=== PATIENT | female | born 1940 | race Caucasian/White ===

== ENCOUNTER 2020-07-29 16:33 | Inpatient (IN) ==
[2020-07-29] MEDS ORDERED: D5% in Water 1,000 ML IVC PRN (17:23)
[2020-07-29] MEDS ORDERED: Dextrose Gel 15 GM/37.5 ML TUBE PO PRN ×2 (17:23)
[2020-07-29] MEDS ORDERED: *HR* Dextrose 50 % in Water (Vial) 50 ML VIAL IVP PRN (17:23)
[2020-07-29] MEDS: Insulin LISPRO 300 UNITS/3 ML VIAL SUBQ SCH (21:13)
[2020-07-29] MEDS ORDERED: Naloxone 0.4 MG/ML INJ IVP PRN (21:20)
[2020-07-29] MEDS: *HR* OxyCODONE Immed Rel 5 MG TABLET PO PRN (21:52)
[2020-07-29] MEDS: Gabapentin 100 MG CAPSULE PO SCH (21:52)
[2020-07-30 06:53] LABS: Basophils % 0.3 %; Eosinophils # 0.2 K/mcL (0.0-0.6); Hematocrit 25.1 % (35.3-44.9); Hemoglobin 7.8 g/dL (11.5-15.4); Immature Granulocytes % 1.2 % (0-4); Lymphocytes # 0.7 K/mcL (0.6-4.6); Lymphocytes % 9.2 %; Mean Corpuscular HGB Conc 31.1 g/dL (31.6-35.5); Mean Corpuscular Hemoglobin 30.5 pg (28.0-33.3); Mean Platelet Volume 9.2 fL (9.4-12.4); Monocytes # 0.6 K/mcL (0.0-1.3); Monocytes % 7.8 %; Neutrophils # 6.1 K/mcL (1.6-8.9); Platelet Count 277 K/mcL (140-400); Red Blood Count 2.56 M/mcL (3.82-4.97); Red Cell Distribution Width 15.8 % (11.5-14.5); Segmented Neutrophils % 79.5 %; White Blood Count 7.7 K/mcL (4.3-11.1)
[2020-07-30] MEDS ORDERED: *HR* Enoxaparin 40 MG/0.4 ML SYRINGE SQ SCH (07:00)
[2020-07-30 07:16] LABS: Calcium 7.7 mg/dL (8.6-10.3); Potassium 4.9 mEq/L (3.5-5.1)
[2020-07-30] MEDS: Metoprolol XL (24 HR) Succ 25 MG TAB.ER.24H PO SCH (09:03)
[2020-07-30] MEDS: Aspirin 81 MG TAB.CHEW PO SCH (09:03)
[2020-07-30] MEDS: lisinopriL 5 MG TABLET PO SCH (09:04)
[2020-07-30] MEDS: Gabapentin 100 MG CAPSULE PO SCH ×3 (09:04→20:27)
[2020-07-30] MEDS: Furosemide 40 MG TABLET PO SCH (09:04)
[2020-07-30] MEDS: Insulin LISPRO 300 UNITS/3 ML VIAL SUBQ SCH ×4 (09:06→20:44)
[2020-07-30] MEDS: *HR* OxyCODONE Immed Rel 5 MG TABLET PO PRN (09:10)
[2020-07-30] MEDS: *HR* HYDROcodone/Acet 5/325 mg TABLET PO PRN ×2 (14:49→20:25)
[2020-07-31 07:09] LABS: Basophils % 0.1 %; Eosinophils # 0.2 K/mcL (0.0-0.6); Eosinophils % 2.5 %; Hematocrit 24.7 % (35.3-44.9); Hemoglobin 7.6 g/dL (11.5-15.4); Immature Granulocytes % 0.6 % (0-4); Lymphocytes # 0.7 K/mcL (0.6-4.6); Lymphocytes % 9.1 %; Mean Corpuscular HGB Conc 30.8 g/dL (31.6-35.5); Mean Corpuscular Hemoglobin 30.3 pg (28.0-33.3); Mean Corpuscular Volume 98.4 fL (83.0-100.0); Mean Platelet Volume 9.1 fL (9.4-12.4); Monocytes # 0.6 K/mcL (0.0-1.3); Monocytes % 8.1 %; Neutrophils # 5.7 K/mcL (1.6-8.9); Platelet Count 272 K/mcL (140-400); Red Blood Count 2.51 M/mcL (3.82-4.97); Red Cell Distribution Width 15.9 % (11.5-14.5); Segmented Neutrophils % 79.6 %; White Blood Count 7.2 K/mcL (4.3-11.1)
[2020-07-31 07:22] LABS: BUN/Creatinine Ratio 39 (6-26); Blood Urea Nitrogen 57 mg/dL (8-23); Calcium 7.9 mg/dL (8.6-10.3); Carbon Dioxide 26 mEq/L (23-29); Chloride 107 mEq/L (98-107); Glucose 146 mg/dL (70-105); Osmolality,Calculated 304 (280-300); Sodium 138 mEq/L (136-145); eGFR For African Americans 42 (> 60); eGFR For Non-African Americans 34 (> 60)
[2020-07-31] MEDS: Gabapentin 100 MG CAPSULE PO SCH ×3 (07:50→21:34)
[2020-07-31] MEDS: Furosemide 40 MG TABLET PO SCH (07:50)
[2020-07-31] MEDS: lisinopriL 5 MG TABLET PO SCH (07:50)
[2020-07-31] MEDS: Aspirin 81 MG TAB.CHEW PO SCH (07:50)
[2020-07-31] MEDS: Metoprolol XL (24 HR) Succ 25 MG TAB.ER.24H PO SCH (07:51)
[2020-07-31] MEDS: *HR* HYDROcodone/Acet 5/325 mg TABLET PO PRN ×3 (07:51→21:34)
[2020-07-31] MEDS: Insulin LISPRO 300 UNITS/3 ML VIAL SUBQ SCH ×3 (07:54→16:57)
[2020-07-31 09:19] LABS: C-Reactive Protein < 5 mg/L (Less than 10)
[2020-07-31] MEDS: Sennosides/Docusate Sodium TABLET PO SCH ×2 (14:08→21:34)
[2020-07-31] MEDS: *HR* OxyCODONE Immed Rel 5 MG TABLET PO PRN (19:44)
[2020-08-01] MEDS: Insulin LISPRO 300 UNITS/3 ML VIAL SUBQ SCH ×5 (00:38→22:24)
[2020-08-01] MEDS: *HR* HYDROcodone/Acet 5/325 mg TABLET PO PRN (04:08)
[2020-08-01] MEDS: Sennosides/Docusate Sodium TABLET PO SCH ×2 (08:51→22:23)
[2020-08-01] MEDS: Metoprolol XL (24 HR) Succ 25 MG TAB.ER.24H PO SCH (08:51)
[2020-08-01] MEDS: Furosemide 40 MG TABLET PO SCH (08:51)
[2020-08-01] MEDS: Aspirin 81 MG TAB.CHEW PO SCH (08:52)
[2020-08-01] MEDS: Gabapentin 100 MG CAPSULE PO SCH ×3 (08:52→22:23)
[2020-08-01 09:06] LABS: Hematocrit 28.1 % (35.3-44.9); Hemoglobin 8.7 g/dL (11.5-15.4); Mean Corpuscular Hemoglobin 30.4 pg (28.0-33.3); Mean Corpuscular Volume 98.3 fL (83.0-100.0); Mean Platelet Volume 8.7 fL (9.4-12.4); Platelet Count 291 K/mcL (140-400); Red Blood Count 2.86 M/mcL (3.82-4.97); Red Cell Distribution Width 15.8 % (11.5-14.5); White Blood Count 7.3 K/mcL (4.3-11.1)
[2020-08-01 09:25] LABS: Calcium 8.1 mg/dL (8.6-10.3)
[2020-08-01] MEDS ORDERED: Ondansetron 4 MG/2 ML VIAL ONE (09:44)
[2020-08-01] MEDS: Ondansetron 4 MG/2 ML VIAL IVP PRN (09:51)
[2020-08-01] MEDS: *HR* OxyCODONE Immed Rel 5 MG TABLET PO PRN ×2 (09:51→22:24)
[2020-08-02] MEDS: Saline Nasal Spray 44 ML BOTTLE NS PRN (00:03)
[2020-08-02] MEDS: Ondansetron 4 MG/2 ML VIAL IVP PRN (03:13)
[2020-08-02] MEDS: *HR* OxyCODONE Immed Rel 5 MG TABLET PO PRN (04:24)
[2020-08-02 07:32] LABS: Hematocrit 25.4 % (35.3-44.9); Hemoglobin 7.7 g/dL (11.5-15.4); Mean Corpuscular HGB Conc 30.3 g/dL (31.6-35.5); Mean Corpuscular Hemoglobin 30.1 pg (28.0-33.3); Mean Corpuscular Volume 99.2 fL (83.0-100.0); Mean Platelet Volume 9.2 fL (9.4-12.4); Platelet Count 274 K/mcL (140-400); Red Blood Count 2.56 M/mcL (3.82-4.97); Red Cell Distribution Width 16.2 % (11.5-14.5); White Blood Count 9.8 K/mcL (4.3-11.1)
[2020-08-02 07:46] LABS: Calcium 7.9 mg/dL (8.6-10.3); Potassium 5.9 mEq/L (3.5-5.1)
[2020-08-02] MEDS: Gabapentin 100 MG CAPSULE PO SCH ×3 (07:59→23:26)
[2020-08-02] MEDS: Furosemide 40 MG TABLET PO SCH (07:59)
[2020-08-02] MEDS: Aspirin 81 MG TAB.CHEW PO SCH (07:59)
[2020-08-02] MEDS: Insulin LISPRO 300 UNITS/3 ML VIAL SUBQ SCH ×4 (08:00→23:26)
[2020-08-02] MEDS: Metoprolol XL (24 HR) Succ 25 MG TAB.ER.24H PO SCH (08:02)
[2020-08-02] MEDS: Sennosides/Docusate Sodium TABLET PO SCH ×2 (08:03→23:26)
[2020-08-02] MEDS: *HR* HYDROcodone/Acet 5/325 mg TABLET PO PRN ×2 (09:20→16:03)
[2020-08-02] MEDS: Acetaminophen 325 MG TABLET PO PRN (09:21)
[2020-08-03] MEDS: *HR* OxyCODONE Immed Rel 5 MG TABLET PO PRN (00:04)
[2020-08-03] MEDS: *HR* HYDROcodone/Acet 5/325 mg TABLET PO PRN (04:32)
[2020-08-03 08:29] LABS: Basophils % 0.3 %; Eosinophils # 0.1 K/mcL (0.0-0.6); Eosinophils % 2.1 %; Hematocrit 23.7 % (35.3-44.9); Hemoglobin 7.3 g/dL (11.5-15.4); Immature Granulocytes % 0.7 % (0-4); Lymphocytes # 0.6 K/mcL (0.6-4.6); Lymphocytes % 9.5 %; Mean Corpuscular HGB Conc 30.8 g/dL (31.6-35.5); Mean Corpuscular Hemoglobin 30.7 pg (28.0-33.3); Mean Corpuscular Volume 99.6 fL (83.0-100.0); Monocytes # 0.5 K/mcL (0.0-1.3); Monocytes % 6.8 %; Neutrophils # 5.5 K/mcL (1.6-8.9); Platelet Count 242 K/mcL (140-400); Red Blood Count 2.38 M/mcL (3.82-4.97); Red Cell Distribution Width 15.9 % (11.5-14.5); Segmented Neutrophils % 80.6 %; White Blood Count 6.8 K/mcL (4.3-11.1)
[2020-08-03 08:41] LABS: Calcium 7.8 mg/dL (8.6-10.3); Potassium 5.4 mEq/L (3.5-5.1)
[2020-08-03] MEDS: Insulin LISPRO 300 UNITS/3 ML VIAL SUBQ SCH ×4 (09:21→22:08)
[2020-08-03] MEDS: Sennosides/Docusate Sodium TABLET PO SCH ×2 (09:22→22:09)
[2020-08-03] MEDS: Metoprolol XL (24 HR) Succ 25 MG TAB.ER.24H PO SCH (09:22)
[2020-08-03] MEDS: Gabapentin 100 MG CAPSULE PO SCH ×3 (09:23→22:09)
[2020-08-03] MEDS: Aspirin 81 MG TAB.CHEW PO SCH (09:23)
[2020-08-03] MEDS: Furosemide 40 MG TABLET PO SCH (09:23)
[2020-08-03] MEDS: Ondansetron 4 MG/2 ML VIAL IVP PRN (09:43)
[2020-08-03] MEDS ORDERED: 0.9 % Sodium Chloride 250 ML IVC SCH (09:45)
[2020-08-03] MEDS: Acetaminophen 325 MG TABLET PO PRN (22:12)
[2020-08-04 05:45] LABS: Basophils % 0.5 %; Eosinophils # 0.2 K/mcL (0.0-0.6); Eosinophils % 2.8 %; Hemoglobin 8.6 g/dL (11.5-15.4); Immature Granulocytes % 0.5 % (0-4); Lymphocytes # 0.6 K/mcL (0.6-4.6); Lymphocytes % 10.6 %; Mean Corpuscular HGB Conc 30.7 g/dL (31.6-35.5); Mean Corpuscular Hemoglobin 30.2 pg (28.0-33.3); Mean Corpuscular Volume 98.2 fL (83.0-100.0); Mean Platelet Volume 9.1 fL (9.4-12.4); Monocytes # 0.5 K/mcL (0.0-1.3); Monocytes % 7.8 %; Neutrophils # 4.7 K/mcL (1.6-8.9); Platelet Count 239 K/mcL (140-400); Red Blood Count 2.85 M/mcL (3.82-4.97); Red Cell Distribution Width 15.8 % (11.5-14.5); Segmented Neutrophils % 77.8 %
[2020-08-04 06:05] LABS: Calcium 7.7 mg/dL (8.6-10.3)
[2020-08-04] MEDS: Aspirin 81 MG TAB.CHEW PO SCH (09:17)
[2020-08-04] MEDS: Insulin LISPRO 300 UNITS/3 ML VIAL SUBQ SCH ×4 (09:17→21:52)
[2020-08-04] MEDS: Sennosides/Docusate Sodium TABLET PO SCH ×2 (09:17→21:52)
[2020-08-04] MEDS: Gabapentin 100 MG CAPSULE PO SCH ×3 (09:18→21:52)
[2020-08-04] MEDS ORDERED: Bisacodyl 10 MG RECTAL SUPPOSITORY RC STA (23:20)
[2020-08-05 09:17] LABS: Basophils % 0.3 %; Eosinophils # 0.2 K/mcL (0.0-0.6); Eosinophils % 2.4 %; Hematocrit 29.1 % (35.3-44.9); Immature Granulocytes % 0.4 % (0-4); Lymphocytes # 0.6 K/mcL (0.6-4.6); Lymphocytes % 7.4 %; Mean Corpuscular HGB Conc 30.9 g/dL (31.6-35.5); Mean Corpuscular Hemoglobin 30.2 pg (28.0-33.3); Mean Corpuscular Volume 97.7 fL (83.0-100.0); Mean Platelet Volume 8.9 fL (9.4-12.4); Monocytes # 0.5 K/mcL (0.0-1.3); Monocytes % 6.5 %; Neutrophils # 6.3 K/mcL (1.6-8.9); Platelet Count 279 K/mcL (140-400); Red Blood Count 2.98 M/mcL (3.82-4.97); Red Cell Distribution Width 15.3 % (11.5-14.5); White Blood Count 7.6 K/mcL (4.3-11.1)
[2020-08-05] MEDS: Insulin LISPRO 300 UNITS/3 ML VIAL SUBQ SCH ×4 (09:17→20:43)
[2020-08-05 09:28] LABS: BUN/Creatinine Ratio 45 (6-26); Blood Urea Nitrogen 41 mg/dL (8-23); Calcium 8.2 mg/dL (8.6-10.3); Carbon Dioxide 28 mEq/L (23-29); Chloride 106 mEq/L (98-107); Glucose 130 mg/dL (70-105); Osmolality,Calculated 300 (280-300); Potassium 4.6 mEq/L (3.5-5.1); Sodium 139 mEq/L (136-145); eGFR For African Americans > 60 (> 60); eGFR For Non-African Americans 59 (> 60)
[2020-08-05] MEDS: Furosemide 40 MG TABLET PO SCH (10:04)
[2020-08-05] MEDS: Sennosides/Docusate Sodium TABLET PO SCH ×2 (10:04→20:42)
[2020-08-05] MEDS: Metoprolol XL (24 HR) Succ 25 MG TAB.ER.24H PO SCH (10:05)
[2020-08-05] MEDS: Aspirin 81 MG TAB.CHEW PO SCH (10:05)
[2020-08-05] MEDS: Acetaminophen 325 MG TABLET PO PRN (16:14)
[2020-08-05] MEDS: 0.9 % Sodium Chloride 1,000 ML IVC SCH (16:15)
[2020-08-05] MEDS ORDERED: Preparation H Ointment 57 GM TUBE TP PRN (17:31)
[2020-08-06] MEDS: 0.9 % Sodium Chloride 1,000 ML IVC SCH (01:42)
[2020-08-06] MEDS: Ondansetron 4 MG/2 ML VIAL IVP PRN ×2 (02:21→09:17)
[2020-08-06 06:52] LABS: Hematocrit 26.7 % (35.3-44.9); Hemoglobin 8.3 g/dL (11.5-15.4); Mean Corpuscular HGB Conc 31.1 g/dL (31.6-35.5); Mean Corpuscular Hemoglobin 30.3 pg (28.0-33.3); Mean Corpuscular Volume 97.4 fL (83.0-100.0); Mean Platelet Volume 8.9 fL (9.4-12.4); Platelet Count 252 K/mcL (140-400); Red Blood Count 2.74 M/mcL (3.82-4.97); Red Cell Distribution Width 15.4 % (11.5-14.5); White Blood Count 6.3 K/mcL (4.3-11.1)
[2020-08-06 07:09] LABS: BUN/Creatinine Ratio 33 (6-26); Blood Urea Nitrogen 25 mg/dL (8-23); Calcium 7.9 mg/dL (8.6-10.3); Carbon Dioxide 28 mEq/L (23-29); Chloride 110 mEq/L (98-107); Glucose 125 mg/dL (70-105); Magnesium 1.8 mg/dL (1.6-2.6); Osmolality,Calculated 298 (280-300); Potassium 4.4 mEq/L (3.5-5.1); Sodium 141 mEq/L (136-145); eGFR For African Americans > 60 (> 60); eGFR For Non-African Americans > 60 (> 60)
[2020-08-06] MEDS: Metoprolol XL (24 HR) Succ 25 MG TAB.ER.24H PO SCH (09:18)
[2020-08-06] MEDS: Sennosides/Docusate Sodium TABLET PO SCH ×2 (09:19→21:41)
[2020-08-06] MEDS: Aspirin 81 MG TAB.CHEW PO SCH (09:19)
[2020-08-06] MEDS: Insulin LISPRO 300 UNITS/3 ML VIAL SUBQ SCH ×4 (09:20→21:16)
[2020-08-06 10:02] LABS: % Iron Saturation 14 % (15-50); Iron 27 mcg/dL (50-170); Transferrin 135 mg/dL (203-362)
[2020-08-06 10:28] LABS: Folate 11.6 ng/mL (3.0-16.0)
[2020-08-06] MEDS: Saline Nasal Spray 44 ML BOTTLE NS PRN (21:41)
[2020-08-07] MEDS: Acetaminophen 325 MG TABLET PO PRN (00:33)
[2020-08-07] MEDS: Melatonin 3 MG TABLET PO PRN ×2 (00:33→22:11)
[2020-08-07] MEDS: Insulin LISPRO 300 UNITS/3 ML VIAL SUBQ SCH ×4 (07:30→20:47)
[2020-08-07] MEDS: Sennosides/Docusate Sodium TABLET PO SCH ×2 (07:58→20:48)
[2020-08-07] MEDS: Aspirin 81 MG TAB.CHEW PO SCH (07:58)
[2020-08-07] MEDS: Metoprolol XL (24 HR) Succ 25 MG TAB.ER.24H PO SCH (07:58)
[2020-08-07] MEDS: Ipratropium/Albuterol Neb 3 ML IH PRN (08:46)
[2020-08-07] MEDS: Ondansetron 4 MG/2 ML VIAL IVP PRN (17:13)
[2020-08-08 06:53] LABS: Hematocrit 26.5 % (35.3-44.9); Hemoglobin 8.3 g/dL (11.5-15.4); Mean Corpuscular HGB Conc 31.3 g/dL (31.6-35.5); Mean Corpuscular Hemoglobin 30.5 pg (28.0-33.3); Mean Corpuscular Volume 97.4 fL (83.0-100.0); Mean Platelet Volume 8.7 fL (9.4-12.4); Platelet Count 253 K/mcL (140-400); Red Blood Count 2.72 M/mcL (3.82-4.97); Red Cell Distribution Width 15.8 % (11.5-14.5); White Blood Count 5.5 K/mcL (4.3-11.1)
[2020-08-08 07:15] LABS: BUN/Creatinine Ratio 24 (6-26); Blood Urea Nitrogen 19 mg/dL (8-23); Carbon Dioxide 28 mEq/L (23-29); Chloride 108 mEq/L (98-107); Glucose 121 mg/dL (70-105); Osmolality,Calculated 296 (280-300); Potassium 4.4 mEq/L (3.5-5.1); Sodium 141 mEq/L (136-145); eGFR For African Americans > 60 (> 60); eGFR For Non-African Americans > 60 (> 60)
[2020-08-08] MEDS: Insulin LISPRO 300 UNITS/3 ML VIAL SUBQ SCH ×4 (09:41→22:42)
[2020-08-08] MEDS: Metoprolol XL (24 HR) Succ 25 MG TAB.ER.24H PO SCH (09:42)
[2020-08-08] MEDS: Furosemide 40 MG TABLET PO SCH (09:42)
[2020-08-08] MEDS: Acetaminophen 325 MG TABLET PO PRN (09:43)
[2020-08-08] MEDS: Aspirin 81 MG TAB.CHEW PO SCH (09:43)
[2020-08-08] MEDS: Sennosides/Docusate Sodium TABLET PO SCH ×2 (09:44→22:42)
[2020-08-08] MEDS: Melatonin 3 MG TABLET PO PRN (22:12)
[2020-08-09] MEDS: Insulin LISPRO 300 UNITS/3 ML VIAL SUBQ SCH ×4 (07:20→20:56)
[2020-08-09] MEDS: Ondansetron 4 MG/2 ML VIAL IVP PRN (08:51)
[2020-08-09] MEDS: Metoprolol XL (24 HR) Succ 25 MG TAB.ER.24H PO SCH (08:51)
[2020-08-09] MEDS: Aspirin 81 MG TAB.CHEW PO SCH (08:51)
[2020-08-09] MEDS: Sennosides/Docusate Sodium TABLET PO SCH ×2 (08:51→21:19)
[2020-08-09] MEDS: Furosemide 40 MG TABLET PO SCH (08:51)
[2020-08-09] MEDS: Melatonin 3 MG TABLET PO PRN (22:04)
[2020-08-10] MEDS: Insulin LISPRO 300 UNITS/3 ML VIAL SUBQ SCH ×4 (08:07→20:10)
[2020-08-10] MEDS: Aspirin 81 MG TAB.CHEW PO SCH (08:14)
[2020-08-10] MEDS: Metoprolol XL (24 HR) Succ 25 MG TAB.ER.24H PO SCH (08:14)
[2020-08-10] MEDS: Furosemide 40 MG TABLET PO SCH (08:14)
[2020-08-10] MEDS: Sennosides/Docusate Sodium TABLET PO SCH ×2 (08:14→20:08)
[2020-08-10] MEDS: Ondansetron 4 MG/2 ML VIAL IVP PRN ×2 (08:35→16:20)
[2020-08-10] MEDS ORDERED: lisinopriL 5 MG TABLET PO SCH (09:00)
[2020-08-10 09:02] LABS: Basophils % 0.3 %; Eosinophils # 0.2 K/mcL (0.0-0.6); Eosinophils % 3.5 %; Hematocrit 28.1 % (35.3-44.9); Hemoglobin 8.9 g/dL (11.5-15.4); Immature Granulocytes % 0.5 % (0-4); Lymphocytes # 0.7 K/mcL (0.6-4.6); Lymphocytes % 11.9 %; Mean Corpuscular HGB Conc 31.7 g/dL (31.6-35.5); Mean Corpuscular Hemoglobin 30.4 pg (28.0-33.3); Mean Corpuscular Volume 95.9 fL (83.0-100.0); Mean Platelet Volume 8.8 fL (9.4-12.4); Monocytes # 0.4 K/mcL (0.0-1.3); Monocytes % 7.4 %; Neutrophils # 4.6 K/mcL (1.6-8.9); Platelet Count 275 K/mcL (140-400); Red Blood Count 2.93 M/mcL (3.82-4.97); Red Cell Distribution Width 15.9 % (11.5-14.5); Segmented Neutrophils % 76.4 %
[2020-08-10 09:19] LABS: BUN/Creatinine Ratio 26 (6-26); Blood Urea Nitrogen 25 mg/dL (8-23); Calcium 8.1 mg/dL (8.6-10.3); Carbon Dioxide 30 mEq/L (23-29); Chloride 101 mEq/L (98-107); Glucose 141 mg/dL (70-105); Osmolality,Calculated 291 (280-300); Potassium 3.9 mEq/L (3.5-5.1); Sodium 137 mEq/L (136-145); eGFR For African Americans > 60 (> 60); eGFR For Non-African Americans 56 (> 60)
[2020-08-10 12:11] LABS: C-Reactive Protein < 5 mg/L (Less than 10)
[2020-08-10] MEDS: Melatonin 3 MG TABLET PO PRN (22:30)
[2020-08-11] MEDS: Insulin LISPRO 300 UNITS/3 ML VIAL SUBQ SCH ×4 (07:32→20:58)
[2020-08-11] MEDS: Metoprolol XL (24 HR) Succ 25 MG TAB.ER.24H PO SCH (08:18)
[2020-08-11] MEDS: Sennosides/Docusate Sodium TABLET PO SCH ×2 (08:20→21:46)
[2020-08-11] MEDS: Aspirin 81 MG TAB.CHEW PO SCH (08:20)
[2020-08-11] MEDS: Furosemide 20 MG TABLET PO SCH (09:06)
[2020-08-11] MEDS: Ondansetron 4 MG/2 ML VIAL IVP PRN (11:03)
[2020-08-11] MEDS: Melatonin 3 MG TABLET PO PRN (21:47)
[2020-08-12] MEDS: Insulin LISPRO 300 UNITS/3 ML VIAL SUBQ SCH ×4 (07:27→20:56)
[2020-08-12] MEDS: Sennosides/Docusate Sodium TABLET PO SCH ×2 (08:11→20:55)
[2020-08-12] MEDS: Aspirin 81 MG TAB.CHEW PO SCH (08:11)
[2020-08-12] MEDS: Furosemide 20 MG TABLET PO SCH (08:12)
[2020-08-12] MEDS: Metoprolol XL (24 HR) Succ 25 MG TAB.ER.24H PO SCH (08:12)
[2020-08-12] MEDS: Melatonin 3 MG TABLET PO PRN (20:55)
[2020-08-13] MEDS: Insulin LISPRO 300 UNITS/3 ML VIAL SUBQ SCH ×4 (08:44→20:02)
[2020-08-13] MEDS: Furosemide 20 MG TABLET PO SCH (08:45)
[2020-08-13] MEDS: Sennosides/Docusate Sodium TABLET PO SCH ×2 (08:45→20:03)
[2020-08-13] MEDS: Metoprolol XL (24 HR) Succ 25 MG TAB.ER.24H PO SCH (08:45)
[2020-08-13] MEDS: Aspirin 81 MG TAB.CHEW PO SCH (08:45)
[2020-08-13] MEDS: Melatonin 3 MG TABLET PO PRN (22:12)
[2020-08-14 07:23] LABS: Hematocrit 26.3 % (35.3-44.9); Hemoglobin 8.1 g/dL (11.5-15.4); Mean Corpuscular HGB Conc 30.8 g/dL (31.6-35.5); Mean Corpuscular Hemoglobin 29.8 pg (28.0-33.3); Mean Corpuscular Volume 96.7 fL (83.0-100.0); Mean Platelet Volume 8.7 fL (9.4-12.4); Platelet Count 284 K/mcL (140-400); Red Blood Count 2.72 M/mcL (3.82-4.97); Red Cell Distribution Width 15.9 % (11.5-14.5); White Blood Count 4.8 K/mcL (4.3-11.1)
[2020-08-14 07:43] LABS: BUN/Creatinine Ratio 26 (6-26); Blood Urea Nitrogen 24 mg/dL (8-23); Carbon Dioxide 29 mEq/L (23-29); Chloride 104 mEq/L (98-107); Glucose 138 mg/dL (70-105); Osmolality,Calculated 294 (280-300); Potassium 4.3 mEq/L (3.5-5.1); Sodium 139 mEq/L (136-145); eGFR For African Americans > 60 (> 60); eGFR For Non-African Americans 57 (> 60)
[2020-08-14] MEDS: Insulin LISPRO 300 UNITS/3 ML VIAL SUBQ SCH ×4 (07:55→19:34)
[2020-08-14] MEDS: Sennosides/Docusate Sodium TABLET PO SCH ×2 (09:09→19:38)
[2020-08-14] MEDS: Furosemide 20 MG TABLET PO SCH (09:10)
[2020-08-14] MEDS: Aspirin 81 MG TAB.CHEW PO SCH (09:10)
[2020-08-14] MEDS: Metoprolol XL (24 HR) Succ 25 MG TAB.ER.24H PO SCH (09:10)
[2020-08-14] MEDS: Melatonin 3 MG TABLET PO PRN (22:19)
[2020-08-15] MEDS: Insulin LISPRO 300 UNITS/3 ML VIAL SUBQ SCH ×4 (08:03→21:56)
[2020-08-15] MEDS: Furosemide 20 MG TABLET PO SCH (08:04)
[2020-08-15] MEDS: Sennosides/Docusate Sodium TABLET PO SCH ×2 (08:04→21:56)
[2020-08-15] MEDS: Aspirin 81 MG TAB.CHEW PO SCH (08:04)
[2020-08-15] MEDS: Metoprolol XL (24 HR) Succ 25 MG TAB.ER.24H PO SCH (08:04)
[2020-08-15] MEDS: Melatonin 3 MG TABLET PO PRN (21:56)
[2020-08-16] MEDS: Insulin LISPRO 300 UNITS/3 ML VIAL SUBQ SCH ×4 (09:32→21:56)
[2020-08-16] MEDS: Metoprolol XL (24 HR) Succ 25 MG TAB.ER.24H PO SCH (09:46)
[2020-08-16] MEDS: Aspirin 81 MG TAB.CHEW PO SCH (09:46)
[2020-08-16] MEDS: Furosemide 20 MG TABLET PO SCH (09:46)
[2020-08-16] MEDS: Sennosides/Docusate Sodium TABLET PO SCH ×2 (09:46→21:57)
[2020-08-16] MEDS: Melatonin 3 MG TABLET PO PRN (21:55)
[2020-08-17] MEDS: Insulin LISPRO 300 UNITS/3 ML VIAL SUBQ SCH ×4 (09:23→20:01)
[2020-08-17] MEDS: Sennosides/Docusate Sodium TABLET PO SCH ×2 (09:24→20:05)
[2020-08-17] MEDS: Furosemide 20 MG TABLET PO SCH (09:24)
[2020-08-17] MEDS: Aspirin 81 MG TAB.CHEW PO SCH (09:24)
[2020-08-17] MEDS: Metoprolol XL (24 HR) Succ 25 MG TAB.ER.24H PO SCH (09:25)
[2020-08-17] MEDS: Melatonin 3 MG TABLET PO PRN (22:27)
[2020-08-18 09:42] LABS: Basophils % 0.7 %; Eosinophils # 0.2 K/mcL (0.0-0.6); Eosinophils % 3.1 %; Hematocrit 29.3 % (35.3-44.9); Hemoglobin 8.9 g/dL (11.5-15.4); Immature Granulocytes % 0.7 % (0-4); Lymphocytes # 0.7 K/mcL (0.6-4.6); Lymphocytes % 12.1 %; Mean Corpuscular HGB Conc 30.4 g/dL (31.6-35.5); Mean Corpuscular Hemoglobin 30.3 pg (28.0-33.3); Mean Corpuscular Volume 99.7 fL (83.0-100.0); Mean Platelet Volume 8.6 fL (9.4-12.4); Monocytes # 0.5 K/mcL (0.0-1.3); Monocytes % 7.8 %; Neutrophils # 4.4 K/mcL (1.6-8.9); Platelet Count 286 K/mcL (140-400); Red Blood Count 2.94 M/mcL (3.82-4.97); Red Cell Distribution Width 15.3 % (11.5-14.5); Segmented Neutrophils % 75.6 %; White Blood Count 5.9 K/mcL (4.3-11.1)
[2020-08-18] MEDS: Metoprolol XL (24 HR) Succ 25 MG TAB.ER.24H PO SCH (09:42)
[2020-08-18] MEDS: Sennosides/Docusate Sodium TABLET PO SCH ×2 (09:42→21:11)
[2020-08-18] MEDS: Aspirin 81 MG TAB.CHEW PO SCH (09:42)
[2020-08-18] MEDS: Insulin LISPRO 300 UNITS/3 ML VIAL SUBQ SCH ×4 (09:43→21:11)
[2020-08-18] MEDS: Cyanocobalamin (B-12) 1,000 MCG TABLET PO SCH (09:43)
[2020-08-18] MEDS: Furosemide 20 MG TABLET PO SCH (09:43)
[2020-08-18 09:52] LABS: BUN/Creatinine Ratio 28 (6-26); Blood Urea Nitrogen 27 mg/dL (8-23); Calcium 8.1 mg/dL (8.6-10.3); Carbon Dioxide 27 mEq/L (23-29); Chloride 102 mEq/L (98-107); Glucose 230 mg/dL (70-105); Osmolality,Calculated 296 (280-300); Potassium 3.9 mEq/L (3.5-5.1); Sodium 137 mEq/L (136-145); eGFR For African Americans > 60 (> 60); eGFR For Non-African Americans 55 (> 60)
[2020-08-18] MEDS: Ondansetron ODT 4 MG TAB.RAPDIS SL PRN (11:04)
[2020-08-18] MEDS: Melatonin 3 MG TABLET PO PRN (22:25)
[2020-08-19] MEDS: Insulin LISPRO 300 UNITS/3 ML VIAL SUBQ SCH ×4 (09:12→20:19)
[2020-08-19] MEDS: Iron Sucrose Complex 200 MG in 0.9 % Sodium Chloride 100 ML IVPB SCH (09:16)
[2020-08-19] MEDS: Cyanocobalamin (B-12) 1,000 MCG TABLET PO SCH (09:20)
[2020-08-19] MEDS: Aspirin 81 MG TAB.CHEW PO SCH (09:20)
[2020-08-19] MEDS: Furosemide 20 MG TABLET PO SCH (09:20)
[2020-08-19] MEDS: Sennosides/Docusate Sodium TABLET PO SCH ×2 (09:20→20:19)
[2020-08-19] MEDS: Metoprolol XL (24 HR) Succ 25 MG TAB.ER.24H PO SCH (09:20)
[2020-08-19] MEDS: Ondansetron ODT 4 MG TAB.RAPDIS SL PRN (10:27)
[2020-08-19] MEDS: Melatonin 3 MG TABLET PO PRN (22:23)
[2020-08-20] MEDS ORDERED: Morphine Sulfate 2 MG/ML SYRINGE IVP ONE ×2 (05:53→09:14)
[2020-08-20] MEDS: Ondansetron ODT 4 MG TAB.RAPDIS SL PRN (06:29)
[2020-08-20] MEDS ORDERED: Nitroglycerin 0.4 MG TAB.SUBL SL PRN (09:20)
[2020-08-20] MEDS ORDERED: Nitroglycerin 0.4 MG TAB.SUBL SL ONE (09:21)
[2020-08-20 09:43] LABS: Basophils % 0.2 %; Eosinophils # 0.1 K/mcL (0.0-0.6); Eosinophils % 1.2 %; Hematocrit 29.9 % (35.3-44.9); Hemoglobin 9.3 g/dL (11.5-15.4); Immature Granulocytes % 0.6 % (0-4); Lymphocytes # 0.6 K/mcL (0.6-4.6); Lymphocytes % 6.7 %; Mean Corpuscular HGB Conc 31.1 g/dL (31.6-35.5); Mean Corpuscular Volume 96.5 fL (83.0-100.0); Mean Platelet Volume 8.7 fL (9.4-12.4); Monocytes # 0.7 K/mcL (0.0-1.3); Monocytes % 8.2 %; Neutrophils # 6.8 K/mcL (1.6-8.9); Platelet Count 308 K/mcL (140-400); Red Cell Distribution Width 15.1 % (11.5-14.5); Segmented Neutrophils % 83.1 %; White Blood Count 8.2 K/mcL (4.3-11.1)
[2020-08-20 10:07] LABS: BUN/Creatinine Ratio 28 (6-26); Blood Urea Nitrogen 28 mg/dL (8-23); Calcium 8.4 mg/dL (8.6-10.3); Carbon Dioxide 28 mEq/L (23-29); Chloride 102 mEq/L (98-107); Glucose 160 mg/dL (70-105); Osmolality,Calculated 293 (280-300); Potassium 4.1 mEq/L (3.5-5.1); Sodium 137 mEq/L (136-145); eGFR For African Americans > 60 (> 60); eGFR For Non-African Americans 53 (> 60)
[2020-08-20] MEDS: Insulin LISPRO 300 UNITS/3 ML VIAL SUBQ SCH ×4 (10:09→22:00)
[2020-08-20] MEDS: Sennosides/Docusate Sodium TABLET PO SCH ×2 (10:10→22:59)
[2020-08-20] MEDS: Metoprolol XL (24 HR) Succ 25 MG TAB.ER.24H PO SCH (10:10)
[2020-08-20] MEDS: Cyanocobalamin (B-12) 1,000 MCG TABLET PO SCH (10:10)
[2020-08-20] MEDS: Aspirin 81 MG TAB.CHEW PO SCH (10:10)
[2020-08-20 10:11] LABS: Troponin I < 0.03 ng/mL (< 0.04)
[2020-08-20] MEDS ORDERED: Isovue-370 500 ML BOTTLE IVP ONE (10:14)
[2020-08-20] MEDS: *HR* LORazepam 0.5 MG TABLET PO PRN ×2 (11:03→23:00)
[2020-08-20] MEDS: Furosemide 20 MG TABLET PO SCH (11:03)
[2020-08-20] MEDS: Iron Sucrose Complex 200 MG in 0.9 % Sodium Chloride 100 ML IVPB SCH (11:12)
[2020-08-20] MEDS: Melatonin 3 MG TABLET PO PRN (23:00)
[2020-08-21] MEDS: *HR* LORazepam 0.5 MG TABLET PO PRN ×2 (09:05→22:43)
[2020-08-21] MEDS: Insulin LISPRO 300 UNITS/3 ML VIAL SUBQ SCH ×4 (09:05→21:27)
[2020-08-21] MEDS: Metoprolol XL (24 HR) Succ 25 MG TAB.ER.24H PO SCH (09:06)
[2020-08-21] MEDS: Cyanocobalamin (B-12) 1,000 MCG TABLET PO SCH (09:06)
[2020-08-21] MEDS: Furosemide 20 MG TABLET PO SCH (09:06)
[2020-08-21] MEDS: Sennosides/Docusate Sodium TABLET PO SCH ×2 (09:06→22:43)
[2020-08-21] MEDS: Aspirin 81 MG TAB.CHEW PO SCH (09:06)
[2020-08-21] MEDS: Acetaminophen 325 MG TABLET PO PRN (22:43)
[2020-08-21] MEDS: Melatonin 3 MG TABLET PO PRN (22:44)
[2020-08-22] MEDS: Cyanocobalamin (B-12) 1,000 MCG TABLET PO SCH (10:44)
[2020-08-22] MEDS: Aspirin 81 MG TAB.CHEW PO SCH (10:44)
[2020-08-22] MEDS: Furosemide 20 MG TABLET PO SCH (10:44)
[2020-08-22] MEDS: Insulin LISPRO 300 UNITS/3 ML VIAL SUBQ SCH ×4 (10:44→21:28)
[2020-08-22] MEDS: Sennosides/Docusate Sodium TABLET PO SCH ×2 (10:44→22:08)
[2020-08-22] MEDS: Acetaminophen 325 MG TABLET PO PRN (10:50)
[2020-08-22] MEDS: Metoprolol XL (24 HR) Succ 25 MG TAB.ER.24H PO SCH (11:31)
[2020-08-22 11:39] LABS: Basophils % 0.4 %; Eosinophils # 0.2 K/mcL (0.0-0.6); Hemoglobin 8.1 g/dL (11.5-15.4); Immature Granulocytes % 0.4 % (0-4); Lymphocytes # 0.5 K/mcL (0.6-4.6); Lymphocytes % 10.3 %; Mean Corpuscular HGB Conc 31.2 g/dL (31.6-35.5); Mean Corpuscular Hemoglobin 30.1 pg (28.0-33.3); Mean Corpuscular Volume 96.7 fL (83.0-100.0); Mean Platelet Volume 8.4 fL (9.4-12.4); Monocytes # 0.4 K/mcL (0.0-1.3); Monocytes % 7.7 %; Neutrophils # 3.9 K/mcL (1.6-8.9); Platelet Count 247 K/mcL (140-400); Red Blood Count 2.69 M/mcL (3.82-4.97); Red Cell Distribution Width 14.8 % (11.5-14.5); Segmented Neutrophils % 77.2 %
[2020-08-22 11:54] LABS: Alanine Aminotransferase 6 Units/L (7-52); Albumin/Globulin Ratio 1.3 (1.1-2.2); Alkaline Phosphatase 24 Units/L (34-104); Aspartate Amino Transferase 8 Units/L (13-39); BUN/Creatinine Ratio 31 (6-26); Bilirubin,Total 0.3 mg/dL (0.3-1.0); Blood Urea Nitrogen 32 mg/dL (8-23); Calcium 8.3 mg/dL (8.6-10.3); Carbon Dioxide 29 mEq/L (23-29); Chloride 100 mEq/L (98-107); Globulin 2.4 g/dL (2.4-3.5); Glucose 155 mg/dL (70-105); Osmolality,Calculated 290 (280-300); Potassium 3.9 mEq/L (3.5-5.1); Sodium 135 mEq/L (136-145); Total Protein 5.4 g/dL (6.4-8.9); eGFR For African Americans > 60 (> 60); eGFR For Non-African Americans 52 (> 60)
[2020-08-22] MEDS: Melatonin 3 MG TABLET PO PRN (22:09)
[2020-08-22] MEDS: *HR* LORazepam 0.5 MG TABLET PO PRN (22:09)
[2020-08-23 06:58] LABS: Basophils % 0.5 %; Eosinophils # 0.2 K/mcL (0.0-0.6); Eosinophils % 3.8 %; Hematocrit 25.4 % (35.3-44.9); Hemoglobin 8.1 g/dL (11.5-15.4); Immature Granulocytes % 0.7 % (0-4); Lymphocytes # 0.6 K/mcL (0.6-4.6); Lymphocytes % 9.1 %; Mean Corpuscular HGB Conc 31.9 g/dL (31.6-35.5); Mean Corpuscular Hemoglobin 30.6 pg (28.0-33.3); Mean Corpuscular Volume 95.8 fL (83.0-100.0); Mean Platelet Volume 8.9 fL (9.4-12.4); Monocytes # 0.6 K/mcL (0.0-1.3); Monocytes % 9.1 %; Neutrophils # 4.6 K/mcL (1.6-8.9); Platelet Count 286 K/mcL (140-400); Red Blood Count 2.65 M/mcL (3.82-4.97); Red Cell Distribution Width 14.7 % (11.5-14.5); Segmented Neutrophils % 76.8 %
[2020-08-23 07:32] LABS: Alanine Aminotransferase 5 Units/L (7-52); Albumin/Globulin Ratio 1.3 (1.1-2.2); Alkaline Phosphatase 26 Units/L (34-104); Aspartate Amino Transferase 8 Units/L (13-39); BUN/Creatinine Ratio 35 (6-26); Bilirubin,Total 0.3 mg/dL (0.3-1.0); Blood Urea Nitrogen 31 mg/dL (8-23); Calcium 8.2 mg/dL (8.6-10.3); Carbon Dioxide 27 mEq/L (23-29); Chloride 104 mEq/L (98-107); Globulin 2.4 g/dL (2.4-3.5); Glucose 134 mg/dL (70-105); Osmolality,Calculated 295 (280-300); Sodium 138 mEq/L (136-145); Total Protein 5.4 g/dL (6.4-8.9); eGFR For African Americans > 60 (> 60); eGFR For Non-African Americans > 60 (> 60)
[2020-08-23] MEDS: Sennosides/Docusate Sodium TABLET PO SCH ×2 (10:31→20:35)
[2020-08-23] MEDS: Insulin LISPRO 300 UNITS/3 ML VIAL SUBQ SCH ×4 (10:31→21:03)
[2020-08-23] MEDS: Aspirin 81 MG TAB.CHEW PO SCH (10:32)
[2020-08-23] MEDS: Metoprolol XL (24 HR) Succ 25 MG TAB.ER.24H PO SCH (10:32)
[2020-08-23] MEDS: Cyanocobalamin (B-12) 1,000 MCG TABLET PO SCH (10:32)
[2020-08-23] MEDS: Ondansetron ODT 4 MG TAB.RAPDIS SL PRN (10:37)
[2020-08-23] MEDS: *HR* LORazepam 0.5 MG TABLET PO PRN (21:02)
[2020-08-23] MEDS: Melatonin 3 MG TABLET PO PRN (21:02)
[2020-08-24 07:05] LABS: Basophils % 0.6 %; Eosinophils # 0.2 K/mcL (0.0-0.6); Eosinophils % 3.7 %; Hemoglobin 8.2 g/dL (11.5-15.4); Immature Granulocytes % 0.8 % (0-4); Lymphocytes # 0.8 K/mcL (0.6-4.6); Lymphocytes % 16.5 %; Mean Corpuscular HGB Conc 31.5 g/dL (31.6-35.5); Mean Corpuscular Hemoglobin 30.4 pg (28.0-33.3); Mean Corpuscular Volume 96.3 fL (83.0-100.0); Mean Platelet Volume 8.7 fL (9.4-12.4); Monocytes # 0.4 K/mcL (0.0-1.3); Monocytes % 8.3 %; Neutrophils # 3.6 K/mcL (1.6-8.9); Platelet Count 269 K/mcL (140-400); Red Cell Distribution Width 14.8 % (11.5-14.5); Segmented Neutrophils % 70.1 %; White Blood Count 5.1 K/mcL (4.3-11.1)
[2020-08-24] MEDS: *HR* LORazepam 0.5 MG TABLET PO PRN (07:59)
[2020-08-24] MEDS: Sennosides/Docusate Sodium TABLET PO SCH ×2 (07:59→21:45)
[2020-08-24] MEDS: Cyanocobalamin (B-12) 1,000 MCG TABLET PO SCH (07:59)
[2020-08-24] MEDS: Furosemide 20 MG TABLET PO SCH (07:59)
[2020-08-24] MEDS: Metoprolol XL (24 HR) Succ 25 MG TAB.ER.24H PO SCH (08:00)
[2020-08-24] MEDS: Aspirin 81 MG TAB.CHEW PO SCH (08:00)
[2020-08-24 08:01] LABS: Alanine Aminotransferase 5 Units/L (7-52); Albumin 2.9 g/dL (3.5-5.7); Albumin/Globulin Ratio 1.2 (1.1-2.2); Alkaline Phosphatase 24 Units/L (34-104); Aspartate Amino Transferase 8 Units/L (13-39); BUN/Creatinine Ratio 33 (6-26); Bilirubin,Total 0.3 mg/dL (0.3-1.0); Blood Urea Nitrogen 32 mg/dL (8-23); Calcium 8.3 mg/dL (8.6-10.3); Carbon Dioxide 27 mEq/L (23-29); Chloride 104 mEq/L (98-107); Globulin 2.4 g/dL (2.4-3.5); Glucose 137 mg/dL (70-105); Osmolality,Calculated 293 (280-300); Potassium 4.6 mEq/L (3.5-5.1); Sodium 137 mEq/L (136-145); Total Protein 5.3 g/dL (6.4-8.9); eGFR For African Americans > 60 (> 60); eGFR For Non-African Americans 55 (> 60)
[2020-08-24] MEDS: Insulin LISPRO 300 UNITS/3 ML VIAL SUBQ SCH ×4 (08:06→21:46)
[2020-08-24] MEDS: Melatonin 3 MG TABLET PO PRN (21:46)
[2020-08-25 07:09] LABS: Basophils % 0.7 %; Eosinophils # 0.2 K/mcL (0.0-0.6); Eosinophils % 4.2 %; Hematocrit 26.5 % (35.3-44.9); Hemoglobin 8.2 g/dL (11.5-15.4); Immature Granulocytes % 0.5 % (0-4); Lymphocytes # 0.8 K/mcL (0.6-4.6); Lymphocytes % 14.3 %; Mean Corpuscular HGB Conc 30.9 g/dL (31.6-35.5); Mean Corpuscular Volume 97.1 fL (83.0-100.0); Mean Platelet Volume 8.5 fL (9.4-12.4); Monocytes # 0.5 K/mcL (0.0-1.3); Monocytes % 8.6 %; Neutrophils # 4.1 K/mcL (1.6-8.9); Platelet Count 273 K/mcL (140-400); Red Blood Count 2.73 M/mcL (3.82-4.97); Red Cell Distribution Width 14.8 % (11.5-14.5); Segmented Neutrophils % 71.7 %; White Blood Count 5.7 K/mcL (4.3-11.1)
[2020-08-25 07:33] LABS: Alanine Aminotransferase 5 Units/L (7-52); Albumin 2.9 g/dL (3.5-5.7); Albumin/Globulin Ratio 1.2 (1.1-2.2); Alkaline Phosphatase 24 Units/L (34-104); Aspartate Amino Transferase 7 Units/L (13-39); BUN/Creatinine Ratio 32 (6-26); Bilirubin,Total 0.3 mg/dL (0.3-1.0); Blood Urea Nitrogen 32 mg/dL (8-23); Calcium 8.3 mg/dL (8.6-10.3); Carbon Dioxide 28 mEq/L (23-29); Chloride 104 mEq/L (98-107); Globulin 2.4 g/dL (2.4-3.5); Glucose 134 mg/dL (70-105); Osmolality,Calculated 293 (280-300); Potassium 4.3 mEq/L (3.5-5.1); Sodium 137 mEq/L (136-145); Total Protein 5.3 g/dL (6.4-8.9); eGFR For African Americans > 60 (> 60); eGFR For Non-African Americans 54 (> 60)
[2020-08-25] MEDS: Insulin LISPRO 300 UNITS/3 ML VIAL SUBQ SCH ×4 (08:36→21:49)
[2020-08-25] MEDS: Aspirin 81 MG TAB.CHEW PO SCH (08:38)
[2020-08-25] MEDS: Sennosides/Docusate Sodium TABLET PO SCH ×2 (08:38→21:50)
[2020-08-25] MEDS: Ondansetron ODT 4 MG TAB.RAPDIS SL PRN (08:38)
[2020-08-25] MEDS: Cyanocobalamin (B-12) 1,000 MCG TABLET PO SCH (08:39)
[2020-08-25] MEDS: Furosemide 20 MG TABLET PO SCH (08:39)
[2020-08-25] MEDS: Metoprolol XL (24 HR) Succ 25 MG TAB.ER.24H PO SCH (08:39)
[2020-08-25] MEDS: Melatonin 3 MG TABLET PO PRN (21:50)
[2020-08-26] MEDS ORDERED: Perflutren Lipid Microsphere 1.3 ML in 0.9 % Sodium Chloride 8.7 ML IVP PRN (08:54)
[2020-08-26] MEDS: Insulin LISPRO 300 UNITS/3 ML VIAL SUBQ SCH ×4 (09:44→21:46)
[2020-08-26] MEDS: Cyanocobalamin (B-12) 1,000 MCG TABLET PO SCH (09:45)
[2020-08-26] MEDS: Furosemide 20 MG TABLET PO SCH (09:45)
[2020-08-26] MEDS: Sennosides/Docusate Sodium TABLET PO SCH ×2 (09:45→21:45)
[2020-08-26] MEDS: Metoprolol XL (24 HR) Succ 25 MG TAB.ER.24H PO SCH (09:45)
[2020-08-26] MEDS: Aspirin 81 MG TAB.CHEW PO SCH (09:45)
[2020-08-26] MEDS ORDERED: Bisacodyl 10 MG RECTAL SUPPOSITORY RC PRN (10:11)
[2020-08-26] MEDS: Melatonin 3 MG TABLET PO PRN (21:45)
[2020-08-27] MEDS: Cyanocobalamin (B-12) 1,000 MCG TABLET PO SCH (07:48)
[2020-08-27] MEDS: Metoprolol XL (24 HR) Succ 25 MG TAB.ER.24H PO SCH (07:48)
[2020-08-27] MEDS: Furosemide 20 MG TABLET PO SCH (07:48)
[2020-08-27] MEDS: Sennosides/Docusate Sodium TABLET PO SCH ×2 (07:48→21:22)
[2020-08-27] MEDS: Aspirin 81 MG TAB.CHEW PO SCH (07:48)
[2020-08-27] MEDS: Insulin LISPRO 300 UNITS/3 ML VIAL SUBQ SCH ×4 (07:50→20:04)
[2020-08-27] MEDS: Melatonin 3 MG TABLET PO PRN (21:22)
[2020-08-28] MEDS: Ondansetron ODT 4 MG TAB.RAPDIS SL PRN (08:32)
[2020-08-28] MEDS: Insulin LISPRO 300 UNITS/3 ML VIAL SUBQ SCH ×4 (08:32→20:21)
[2020-08-28] MEDS: Furosemide 20 MG TABLET PO SCH (08:33)
[2020-08-28] MEDS: Sennosides/Docusate Sodium TABLET PO SCH ×2 (08:33→21:27)
[2020-08-28] MEDS: Aspirin 81 MG TAB.CHEW PO SCH (08:33)
[2020-08-28] MEDS: Cyanocobalamin (B-12) 1,000 MCG TABLET PO SCH (08:33)
[2020-08-28] MEDS: Metoprolol XL (24 HR) Succ 25 MG TAB.ER.24H PO SCH (08:33)
[2020-08-28] MEDS: Melatonin 3 MG TABLET PO PRN (21:28)
[2020-08-29] MEDS: Insulin LISPRO 300 UNITS/3 ML VIAL SUBQ SCH ×4 (08:04→19:34)
[2020-08-29] MEDS: Cyanocobalamin (B-12) 1,000 MCG TABLET PO SCH (08:05)
[2020-08-29] MEDS: Metoprolol XL (24 HR) Succ 25 MG TAB.ER.24H PO SCH (08:05)
[2020-08-29] MEDS: Sennosides/Docusate Sodium TABLET PO SCH ×2 (08:05→22:08)
[2020-08-29] MEDS: Aspirin 81 MG TAB.CHEW PO SCH (08:05)
[2020-08-29] MEDS: Furosemide 20 MG TABLET PO SCH (08:06)
[2020-08-29] MEDS: Ipratropium/Albuterol Neb 3 ML IH PRN (08:49)
[2020-08-29 09:49] LABS: Basophils % 0.5 %; Eosinophils # 0.2 K/mcL (0.0-0.6); Eosinophils % 2.8 %; Hematocrit 29.8 % (35.3-44.9); Hemoglobin 9.1 g/dL (11.5-15.4); Lymphocytes # 0.9 K/mcL (0.6-4.6); Lymphocytes % 15.5 %; Mean Corpuscular HGB Conc 30.5 g/dL (31.6-35.5); Mean Corpuscular Hemoglobin 30.1 pg (28.0-33.3); Mean Corpuscular Volume 98.7 fL (83.0-100.0); Mean Platelet Volume 8.6 fL (9.4-12.4); Monocytes # 0.3 K/mcL (0.0-1.3); Monocytes % 5.7 %; Neutrophils # 4.5 K/mcL (1.6-8.9); Platelet Count 319 K/mcL (140-400); Red Blood Count 3.02 M/mcL (3.82-4.97); Red Cell Distribution Width 14.9 % (11.5-14.5); Segmented Neutrophils % 74.5 %
[2020-08-29 10:09] LABS: Alanine Aminotransferase 6 Units/L (7-52); Albumin 3.3 g/dL (3.5-5.7); Albumin/Globulin Ratio 1.3 (1.1-2.2); Alkaline Phosphatase 24 Units/L (34-104); Aspartate Amino Transferase 9 Units/L (13-39); BUN/Creatinine Ratio 23 (6-26); Bilirubin,Total 0.3 mg/dL (0.3-1.0); Blood Urea Nitrogen 27 mg/dL (8-23); Calcium 8.6 mg/dL (8.6-10.3); Carbon Dioxide 27 mEq/L (23-29); Chloride 102 mEq/L (98-107); Globulin 2.6 g/dL (2.4-3.5); Glucose 205 mg/dL (70-105); Osmolality,Calculated 299 (280-300); Potassium 3.7 mEq/L (3.5-5.1); Sodium 139 mEq/L (136-145); Total Protein 5.9 g/dL (6.4-8.9); eGFR For African Americans 52 (> 60); eGFR For Non-African Americans 43 (> 60)
[2020-08-29 13:56] LABS: C-Reactive Protein < 5 mg/L (Less than 10)
[2020-08-29] MEDS: *HR* Heparin 5,000 UNIT/ML VIAL SQ SCH (17:27)
[2020-08-29] MEDS: Melatonin 3 MG TABLET PO PRN (22:08)
[2020-08-30] MEDS: *HR* Heparin 5,000 UNIT/ML VIAL SQ SCH ×2 (06:05→17:26)
[2020-08-30] MEDS: Sennosides/Docusate Sodium TABLET PO SCH ×2 (07:36→21:58)
[2020-08-30] MEDS: Furosemide 20 MG TABLET PO SCH (07:36)
[2020-08-30] MEDS: Metoprolol XL (24 HR) Succ 25 MG TAB.ER.24H PO SCH (07:36)
[2020-08-30] MEDS: Aspirin 81 MG TAB.CHEW PO SCH (07:36)
[2020-08-30] MEDS: Cyanocobalamin (B-12) 1,000 MCG TABLET PO SCH (07:36)
[2020-08-30] MEDS: Insulin LISPRO 300 UNITS/3 ML VIAL SUBQ SCH ×4 (07:37→20:58)
[2020-08-30 15:26] LABS: Bilirubin,Urine Negative (Negative); Blood,Urine Trace-lysed (Negative); Clarity,Urine Clear (Clear); Color,Urine Yellow (Yellow); Glucose,Urine (UA) Normal (Normal); Ketones,Urine Negative (Negative); Leukocyte Esterase,Urine Small (Negative); Nitrite,Urine Negative (Negative); Protein,Urine Negative (Neg-Trace); Specific Gravity,Urine 1.015 (1.010-1.025); Urobilinogen,Urine Normal (Normal)
[2020-08-30 15:45] LABS: Mucus,Urine Few per lpf (None-Few); RBC,Urine 0-3 per hpf (0-3); Squamous Epithelial Cell,Urine Few per hpf (None-Few)
[2020-08-30] MEDS: Melatonin 3 MG TABLET PO PRN (21:53)
[2020-08-30] MEDS: *HR* LORazepam 0.5 MG TABLET PO PRN (21:56)
[2020-08-31] MEDS: *HR* Heparin 5,000 UNIT/ML VIAL SQ SCH ×2 (06:14→20:17)
[2020-08-31] MEDS: Cyanocobalamin (B-12) 1,000 MCG TABLET PO SCH (07:40)
[2020-08-31] MEDS: Aspirin 81 MG TAB.CHEW PO SCH (07:40)
[2020-08-31] MEDS: Metoprolol XL (24 HR) Succ 25 MG TAB.ER.24H PO SCH (07:40)
[2020-08-31] MEDS: Furosemide 20 MG TABLET PO SCH (07:41)
[2020-08-31] MEDS: Insulin LISPRO 300 UNITS/3 ML VIAL SUBQ SCH ×4 (08:26→20:18)
[2020-08-31] MEDS: Sennosides/Docusate Sodium TABLET PO SCH ×2 (08:30→20:17)
[2020-08-31] MEDS: *HR* Metformin 500 MG TABLET PO SCH (18:30)
[2020-08-31] MEDS: Melatonin 3 MG TABLET PO PRN (22:09)
[2020-08-31] MEDS: *HR* LORazepam 0.5 MG TABLET PO PRN (22:12)
[2020-09-01] MEDS: *HR* Heparin 5,000 UNIT/ML VIAL SQ SCH ×2 (06:20→17:31)
[2020-09-01] MEDS: Insulin LISPRO 300 UNITS/3 ML VIAL SUBQ SCH ×5 (08:00→22:13)
[2020-09-01] MEDS: Sennosides/Docusate Sodium TABLET PO SCH ×2 (08:01→22:12)
[2020-09-01] MEDS: Cyanocobalamin (B-12) 1,000 MCG TABLET PO SCH (08:01)
[2020-09-01] MEDS: Metoprolol XL (24 HR) Succ 25 MG TAB.ER.24H PO SCH (08:01)
[2020-09-01] MEDS: Aspirin 81 MG TAB.CHEW PO SCH (08:01)
[2020-09-01] MEDS: Furosemide 20 MG TABLET PO SCH (08:02)
[2020-09-01] MEDS: *HR* Metformin 500 MG TABLET PO SCH ×2 (08:09→16:30)
[2020-09-01] MEDS: *HR* LORazepam 0.5 MG TABLET PO PRN (22:13)
[2020-09-01] MEDS: Melatonin 3 MG TABLET PO PRN (22:13)
[2020-09-02] MEDS: *HR* Heparin 5,000 UNIT/ML VIAL SQ SCH (06:21)
[2020-09-02 07:29] VITALS: BP 108/56
[2020-09-02] MEDS: Insulin LISPRO 300 UNITS/3 ML VIAL SUBQ SCH ×2 (08:10→11:51)
[2020-09-02] MEDS: Aspirin 81 MG TAB.CHEW PO SCH (09:16)
[2020-09-02] MEDS: Sennosides/Docusate Sodium TABLET PO SCH (09:16)
[2020-09-02] MEDS: Metoprolol XL (24 HR) Succ 25 MG TAB.ER.24H PO SCH (09:17)
[2020-09-02] MEDS: Cyanocobalamin (B-12) 1,000 MCG TABLET PO SCH (09:17)
[2020-09-02] MEDS: Furosemide 20 MG TABLET PO SCH (09:17)
[2020-09-02] MEDS: *HR* Metformin 500 MG TABLET PO SCH (09:17)
[2020-09-02 09:47] LABS: Basophils % 0.5 %; Eosinophils # 0.2 K/mcL (0.0-0.6); Eosinophils % 3.6 %; Hematocrit 26.9 % (35.3-44.9); Hemoglobin 8.5 g/dL (11.5-15.4); Immature Granulocytes % 0.9 % (0-4); Lymphocytes # 0.5 K/mcL (0.6-4.6); Lymphocytes % 9.6 %; Mean Corpuscular HGB Conc 31.6 g/dL (31.6-35.5); Mean Corpuscular Hemoglobin 30.8 pg (28.0-33.3); Mean Corpuscular Volume 97.5 fL (83.0-100.0); Mean Platelet Volume 8.7 fL (9.4-12.4); Monocytes # 0.3 K/mcL (0.0-1.3); Monocytes % 5.8 %; Neutrophils # 4.4 K/mcL (1.6-8.9); Platelet Count 280 K/mcL (140-400); Red Blood Count 2.76 M/mcL (3.82-4.97); Red Cell Distribution Width 15.2 % (11.5-14.5); Segmented Neutrophils % 79.6 %; White Blood Count 5.5 K/mcL (4.3-11.1)
[2020-09-02 10:25] LABS: Alanine Aminotransferase 5 Units/L (7-52); Albumin/Globulin Ratio 1.3 (1.1-2.2); Alkaline Phosphatase 20 Units/L (34-104); Aspartate Amino Transferase 8 Units/L (13-39); BUN/Creatinine Ratio 27 (6-26); Bilirubin,Total 0.3 mg/dL (0.3-1.0); Blood Urea Nitrogen 25 mg/dL (8-23); Calcium 8.1 mg/dL (8.6-10.3); Carbon Dioxide 26 mEq/L (23-29); Chloride 106 mEq/L (98-107); Globulin 2.4 g/dL (2.4-3.5); Glucose 206 mg/dL (70-105); Osmolality,Calculated 296 (280-300); Potassium 3.5 mEq/L (3.5-5.1); Sodium 138 mEq/L (136-145); Total Protein 5.4 g/dL (6.4-8.9); eGFR For African Americans > 60 (> 60); eGFR For Non-African Americans 59 (> 60)
== END 2020-09-02 13:15 | disposition home health service (06) | DRG 949 ==
LOC: INPPIK 19:19
PROVIDERS: ADMIT Family Medicine; ATTEND Family Medicine